=== PATIENT | female | born 1940 | race African-American/Black ===

== ENCOUNTER 2019-01-04 17:14 | Inpatient (IN) | payer MEDICARE ==
[~2019-01-04] VITALS: Ht 162.6 cm; Wt 72.6 kg
[2019-01-04] MEDS ORDERED: ALBUTEROL (0.083%) 2.5MG/3ML NEB HHN ONE (21:00)
[2019-01-04] MEDS ORDERED: METHYLPREDNISOLONE SOD SUCC 125 MG/2 ML VIAL IV ONE (21:00)
[2019-01-04 22:11] LABS: HEMATOCRIT. 33.1 % (36.0-48.0); HEMOGLOBIN. 11.1 g/dL (12.0-16.0); MEAN CORPUSCULAR VOLUME 95.2 fL (81.0-99.0); MEAN PLATELET VOLUME 6.7 fl (7.4-10.4); PLATELET 305 x1000/uL (130-400); RED BLOOD CELL COUNT 3.48 mill/uL (4.2-5.4); RED CELL DISTRIBUTION WIDTH 16.2 % (11.6-14.6)
[2019-01-04 22:15] LABS: CHLORIDE 98 mEq/L (98-107)
[2019-01-04 22:42] LABS: PLATELET ESTIMATE NORMAL
[2019-01-04] MEDS ORDERED: ALBUTEROL (0.083%) 2.5MG/3ML NEB HHN STA (22:59)
[2019-01-04] MEDS ORDERED: IPRATROPIUM BROMIDE (0.02%) 0.5MG/2.5ML NEB HHN STA (22:59)
[2019-01-04 23:56] LABS: CLARITY URINE CLEAR (CLEAR); COLOR URINE YELLOW (YELLOW); KETONES URINE NEGATIVE (NEGATIVE); LEUKOCYTE ESTERASE URINE NEGATIVE (NEGATIVE); NITRITE URINE NEGATIVE (NEGATIVE); OCCULT BLOOD URINE NEGATIVE (NEGATIVE); PH URINE 6.5 (4.5-8.0); PROTEIN URINE 3+ (NEGATIVE); SPECIFIC GRAVITY URINE 1.014 (1.005-1.030); UROBILINOGEN URINE 0.2 E.U./dL (0.2-1.0)
[2019-01-05 08:00] VITALS: BP 161/71
[2019-01-05] MEDS ORDERED: ASPI-1079 PO (10:34)
[2019-01-05] MEDS ORDERED: ATOR20TA65 MT (10:34)
[2019-01-05] MEDS ORDERED: POTA20TA12 MT (10:34)
[2019-01-05] MEDS ORDERED: GLUC-165 PO (10:34)
[2019-01-05] MEDS ORDERED: NIFE60TA94 MT (10:34)
[2019-01-05] MEDS ORDERED: LOSA1TAB34 MT (10:34)
[2019-01-05] MEDS ORDERED: TRAM50TA3 MT (10:34)
[2019-01-05] MEDS ORDERED: NA PHOS,M-B/NA PHOS,DI-BA ENEMA 118ML PR PRN (10:45)
[2019-01-05] MEDS ORDERED: DEXT 5%/0.45% NACL 1000ML 1,000 ML IV SCH (10:45)
[2019-01-05] MEDS ORDERED: MAGNESIUM/ALUMINUM HYDROXIDE/SIMETHICONE 30ML UDC PO PRN (10:45)
[2019-01-05] MEDS ORDERED: ONDANSETRON HCL 4MG/2ML INJ IV PRN (10:45)
[2019-01-05] MEDS ORDERED: DOCUSATE SODIUM 100MG CAPSULE PO PRN (10:45)
[2019-01-05] MEDS ORDERED: HYDROCODONE/ACETAMINOPHEN 5/325MG TABLET PO PRN (10:45)
[2019-01-05] MEDS ORDERED: ACETAMINOPHEN 325MG TABLET PO PRN (10:45)
[2019-01-05] MEDS ORDERED: IPRATROPIUM/ALBUTEROL 0.5-3(2.5)MG/3ML NEB INH PRN (10:45)
[2019-01-05] MEDS ORDERED: ACETAMINOPHEN 650MG SUPP PR PRN (10:45)
[2019-01-05] MEDS ORDERED: LORAZEPAM 0.5MG TABLET PO PRN (10:45)
[2019-01-05] MEDS ORDERED: CLONIDINE 0.1MG TABLET PO PRN (10:45)
[2019-01-05] MEDS ORDERED: DIPHENHYDRAMINE 50MG/ML VIAL IV PRN (10:45)
[2019-01-05] MEDS ORDERED: IPRATROPIUM/ALBUTEROL 0.5-3(2.5)MG/3ML NEB INH SCH (10:45)
[2019-01-05] MEDS: GUAIFENESIN 200MG/10ML SUGAR FREE UDC PO PRN ×2 (11:14→21:05)
[2019-01-05 12:00] VITALS: BP 170/77
[2019-01-05 12:47] VITALS: BP 161/71
[2019-01-05] MEDS: AMLODIPINE 5MG TABLET PO SCH (12:58)
[2019-01-05 13:20] LABS: HEMATOCRIT 29.7 % (36.0-48.0); HEMOGLOBIN 10.1 g/dL (12.0-16.0); MEAN CORPUSCULAR HEMOGLOBIN 32.6 pg (28.0-32.0); MEAN CORPUSCULAR VOLUME 95.5 fL (81.0-99.0); PLATELET 274 x1000/uL (130-400); RED BLOOD CELL COUNT 3.11 mill/uL (4.2-5.4); RED CELL DISTRIBUTION WIDTH 16.3 % (11.6-14.6)
[2019-01-05 14:53] LABS: *AMPHETAMINES SCREEN URINE NEGATIVE (NEGATIVE); *BARBITURATES SCREEN URINE NEGATIVE (NEGATIVE)
[2019-01-05 14:54] LABS: *BENZODIAZEPINES SCREEN URINE NEGATIVE (NEGATIVE); *COCAINE SCREEN URINE NEGATIVE (NEGATIVE); CANNABINOID URINE SCREEN NEGATIVE (NEGATIVE); METHADONE URINE SCREEN NEGATIVE (NEGATIVE); OPIATES URINE SCREEN NEGATIVE (NEGATIVE); PHENCYCLIDINE URINE SCREEN NEGATIVE (NEGATIVE)
[2019-01-05] MEDS ORDERED: AMLODIPINE 5MG TABLET PO SCH (15:15)
[2019-01-05] MEDS: SODIUM CHLORIDE 0.9% 1,000 ML IV SCH (15:30)
[2019-01-05] MEDS ORDERED: LIDOCAINE HCL/PF 1% 2ML VIAL ONE (15:30)
[2019-01-05 15:57] VITALS: BP 170/77
[2019-01-05] MEDS ORDERED: LEVOFLOXACIN 500MG PREMIX 100 ML IV SCH (16:00)
[2019-01-05] MEDS: METHYLPREDNISOLONE SOD SUCC 40 MG/ML VIAL IV SCH ×2 (16:34→21:05)
[2019-01-05] MEDS: LORATADINE 10MG TABLET PO SCH (16:35)
[2019-01-05 17:16] LABS: CREATINE KINASE 386 IU/L (26-192)
[2019-01-05 17:17] LABS: CREATINE KINASE MB FRACTION 5.5 ng/mL (0.5-3.6)
[2019-01-05 17:23] LABS: BG BASE EXCESS 0.4 mmol/L (-2.0-2.0); BG CARBOXYHEMOGLOBIN 0.3 % (0.5-1.5); BG DEOXYHEMOGLOBIN 5.5 % (0.0-5.0); BG FRACTION INSPIRED OXYGEN 21; BG HCO3 ACT 24.7 mmol/L (22.0-26.0); BG METHEMOGLOBIN 0.2 % (0.0-1.5); BG OXYGEN SATURATION 94.5 % (92.0-98.5); BG PCO2 39.1 mmHg (35.0-45.0); BG PH 7.419 (7.350-7.450); BG PO2 74.6 mmHg (75.0-100.0); BG SAMPLE SITE RIGHT BRACHIAL; BG TOTAL HEMOGLOBIN 12.7 g/dL (12.0-18.0); BG VENT MODE ROOM AIR
[2019-01-05 20:57] VITALS: BP 124/76
[2019-01-05] MEDS: FAMOTIDINE 20MG/2ML VIAL IV SCH (21:05)
[2019-01-05] MEDS: MONTELUKAST SODIUM 10MG TABLET PO SCH (21:05)
[2019-01-05] MEDS: BUDESONIDE 0.5MG/2ML NEB HHN SCH (21:37)
[2019-01-05] MEDS: IPRATROPIUM/ALBUTEROL 0.5-3(2.5)MG/3ML NEB INH SCH (21:40)
[2019-01-05 23:27] LABS: CREATINE KINASE MB FRACTION 7.4 ng/mL (0.5-3.6)
[2019-01-05 23:59] VITALS: BP 118/88
[2019-01-06] MEDS: IPRATROPIUM/ALBUTEROL 0.5-3(2.5)MG/3ML NEB INH SCH ×6 (01:20→21:26)
[2019-01-06 04:00] VITALS: BP 129/68
[2019-01-06] MEDS: METHYLPREDNISOLONE SOD SUCC 40 MG/ML VIAL IV SCH ×3 (06:46→21:13)
[2019-01-06 07:35] LABS: CHLORIDE 96 mEq/L (98-107)
[2019-01-06 07:45] LABS: LDL CHOLESTEROL 51 mg/dL (5-100)
[2019-01-06 07:47] LABS: HDL CHOLESTEROL 115 mg/dL (40-59); T4 FREE 1.08 ng/dL (0.76-1.46)
[2019-01-06 07:49] LABS: BASOPHILS % 0.1 % (0.0-2.0); HEMOGLOBIN. 10.7 g/dL (12.0-16.0); LYMPHOCYTES % 10.9 % (20.0-50.0); MEAN CORPUSCULAR HEMOGLOBIN 31.8 pg (28.0-32.0); MONOCYTES % 5.8 % (2.0-8.0); NEUTROPHILS % 83.2 % (40.0-76.0); PLATELET 295 x1000/uL (130-400); RED BLOOD CELL COUNT 3.37 mill/uL (4.2-5.4)
[2019-01-06 08:00] VITALS: BP 166/75
[2019-01-06] MEDS: FAMOTIDINE 20MG/2ML VIAL IV SCH (09:04)
[2019-01-06] MEDS: AMLODIPINE 5MG TABLET PO SCH (09:04)
[2019-01-06] MEDS: LORATADINE 10MG TABLET PO SCH (09:05)
[2019-01-06] MEDS: BUDESONIDE 0.5MG/2ML NEB HHN SCH ×2 (09:20→21:26)
[2019-01-06] MEDS ORDERED: POTASSIUM CHLORIDE 20MEQ TABLET SR PO SCH (10:45)
[2019-01-06] MEDS: GUAIFENESIN 200MG/10ML SUGAR FREE UDC PO PRN (11:07)
[2019-01-06 12:00] VITALS: BP 150/74
[2019-01-06 13:42] LABS: CREATINE KINASE MB FRACTION 6.6 ng/mL (0.5-3.6)
[2019-01-06 16:00] VITALS: BP 160/75
[2019-01-06] MEDS ORDERED: LEVOFLOXACIN 250MG PREMIX 50 ML IV SCH (16:00)
[2019-01-06] MEDS: SODIUM CHLORIDE 0.9% 1,000 ML IV SCH (16:57)
[2019-01-06] MEDS: THROAT LOZENGES-BENZOCAINE/MENTH/CETYLPYRD CL LOZENGES MM PRN (16:57)
[2019-01-06 20:00] VITALS: BP 145/81
[2019-01-06 20:31] LABS: CREATINE KINASE MB FRACTION 6.8 ng/mL (0.5-3.6)
[2019-01-06] MEDS: MONTELUKAST SODIUM 10MG TABLET PO SCH (21:13)
[2019-01-07] VITALS: BP 157/71
[2019-01-07] MEDS: IPRATROPIUM/ALBUTEROL 0.5-3(2.5)MG/3ML NEB INH SCH ×4 (00:34→12:24)
[2019-01-07 04:00] VITALS: BP 161/76
[2019-01-07] MEDS: METHYLPREDNISOLONE SOD SUCC 40 MG/ML VIAL IV SCH ×2 (06:18→13:43)
[2019-01-07] MEDS: THROAT LOZENGES-BENZOCAINE/MENTH/CETYLPYRD CL LOZENGES MM PRN (06:18)
[2019-01-07 07:11] LABS: HEMATOCRIT 29.5 % (36.0-48.0); HEMOGLOBIN 10.1 g/dL (12.0-16.0); MEAN CORPUSCULAR HEMOGLOBIN 32.2 pg (28.0-32.0); MEAN CORPUSCULAR VOLUME 94.5 fL (81.0-99.0); PLATELET 267 x1000/uL (130-400); RED BLOOD CELL COUNT 3.13 mill/uL (4.2-5.4); RED CELL DISTRIBUTION WIDTH 15.9 % (11.6-14.6)
[2019-01-07 07:24] LABS: PROTHROMBIN TIME 10.1 sec (9.1-11.1)
[2019-01-07 07:49] LABS: CREATINE KINASE MB FRACTION 5.4 ng/mL (0.5-3.6)
[2019-01-07 08:00] VITALS: BP 168/69
[2019-01-07] MEDS: AMLODIPINE 5MG TABLET PO SCH (08:57)
[2019-01-07] MEDS: LORATADINE 10MG TABLET PO SCH (08:58)
[2019-01-07] MEDS: FAMOTIDINE 20MG/2ML VIAL IV SCH (08:59)
[2019-01-07] MEDS: BUDESONIDE 0.5MG/2ML NEB HHN SCH (09:11)
[2019-01-07 11:59] VITALS: BP 173/66
[2019-01-07 12:00] VITALS: BP 173/66
[2019-01-07 14:55] VITALS: BP 127/78
== END 2019-01-07 17:10 | disposition home or self-care (01) | DRG 682 ==
LOC: ER 17:14 → 6WST 01-05 00:51 → EDBEDREQTM 01-05 01:20 → EDBEDREQ 01-05 01:20 → ENRESERV 01-05 07:50
PROVIDERS: ADMIT Internal Medicine; ATTEND Internal Medicine
DX: N17.9 Acute kidney failure, unspecified (principal); I50.33 Acute on chronic diastolic (congestive) heart failure; J44.1 Chronic obstructive pulmonary disease with (acute) exacerbation; I13.0 Hypertensive heart and chronic kidney disease with heart failure and stage 1 through stage 4 chronic kidney disease, or unspecified chronic kidney disease; E87.1 Hypo-osmolality and hyponatremia; N18.9 Chronic kidney disease, unspecified; D64.9 Anemia, unspecified; E04.1 Nontoxic single thyroid nodule; E78.00 Pure hypercholesterolemia, unspecified; M19.90 Unspecified osteoarthritis, unspecified site; D72.819 Decreased white blood cell count, unspecified
CPT/HCPCS: 36415; 36600; 70490; 71045; 71250; 76770; 78582; 80048; 80061; 80305; 82375; 82550; 82553; 82805; 83036; 83735; 83880; 84439; 84443; 84484; 85027; 85379; 93005; 93306; 93970; 94640; 94644; 96374; 96375; 97116; 97162; 99285; A9558; J1956; J2920; J2930; J3490; J7030; J7611; J7620; J7626

== ENCOUNTER 2019-02-06 12:11 | Inpatient (IN) | payer MEDICARE ==
[~2019-02-06] VITALS: Ht 165.1 cm; Wt 73.5 kg
[~2019-02-06 12:11] MED LIST: ASPI-1079 PO; ATOR20TA65 MT; GLUC-165 PO; LOSA1TAB34 MT; NIFE60TA94 MT; POTA20TA12 MT; TRAM50TA3 MT
[2019-02-06] MEDS ORDERED: SODIUM CHLORIDE 0.9% 1,000 ML IV ONE (12:49)
[2019-02-06 13:12] LABS: CHLORIDE 115 mEq/L (98-107)
[2019-02-06 13:19] LABS: HEMATOCRIT. 32.6 % (36.0-48.0); HEMOGLOBIN. 10.9 g/dL (12.0-16.0); MEAN CORPUSCULAR HEMOGLOBIN 32.6 pg (28.0-32.0); MEAN CORPUSCULAR VOLUME 97.9 fL (81.0-99.0); MEAN PLATELET VOLUME 6.8 fl (7.4-10.4); PLATELET 503 x1000/uL (130-400); RED BLOOD CELL COUNT 3.33 mill/uL (4.2-5.4); RED CELL DISTRIBUTION WIDTH 15.2 % (11.6-14.6)
[2019-02-06 13:37] LABS: PLATELET ESTIMATE INCREASED
[2019-02-06] MEDS ORDERED: DOCUSATE SODIUM 100MG CAPSULE PO PRN (15:00)
[2019-02-06] MEDS ORDERED: GUAIFENESIN 200MG/10ML SUGAR FREE UDC PO PRN (15:00)
[2019-02-06] MEDS ORDERED: DIPHENHYDRAMINE 50MG/ML VIAL IV PRN (15:00)
[2019-02-06] MEDS ORDERED: LORAZEPAM 0.5MG TABLET PO PRN (15:00)
[2019-02-06] MEDS ORDERED: IPRATROPIUM/ALBUTEROL 0.5-3(2.5)MG/3ML NEB INH PRN (15:00)
[2019-02-06] MEDS ORDERED: CLONIDINE 0.1MG TABLET PO PRN (15:00)
[2019-02-06] MEDS ORDERED: ACETAMINOPHEN 325MG TABLET PO PRN (15:00)
[2019-02-06] MEDS ORDERED: ACETAMINOPHEN 650MG SUPP PR PRN (15:00)
[2019-02-06] MEDS ORDERED: ONDANSETRON HCL 4MG/2ML INJ IV PRN (15:00)
[2019-02-06] MEDS ORDERED: MAGNESIUM/ALUMINUM HYDROXIDE/SIMETHICONE 30ML UDC PO PRN (15:00)
[2019-02-06] MEDS ORDERED: HYDROCODONE/ACETAMINOPHEN 5/325MG TABLET PO PRN (15:00)
[2019-02-06 15:42] LABS: BG CARBOXYHEMOGLOBIN 0.3 % (0.5-1.5); BG DEOXYHEMOGLOBIN 3.7 % (0.0-5.0); BG HCO3 ACT 9.1 mmol/L (22.0-26.0); BG METHEMOGLOBIN 0.4 % (0.0-1.5); BG OXYGEN SATURATION 96.3 % (92.0-98.5); BG OXYHEMOGLOBIN 95.6 % (94.0-97.0); BG PCO2 23.4 mmHg (35.0-45.0); BG PO2 94.7 mmHg (75.0-100.0); BG SAMPLE SITE RIGHT BRACHIAL; BG TOTAL HEMOGLOBIN 10.6 g/dL (12.0-18.0); BG VENT MODE ROOM AIR
[2019-02-06 16:03] LABS: INR 1.1; PROTHROMBIN TIME 11.4 sec (9.1-11.1)
[2019-02-06] MEDS ORDERED: SODIUM BICARBONATE 8.4% 1 MEQ/ML 50ML SYR IV ONE (18:15)
[2019-02-06] MEDS ORDERED: LEVOFLOXACIN 500MG PREMIX 100 ML IV NR (18:30)
[2019-02-06 21:00] VITALS: BP 144/68
[2019-02-06] MEDS ORDERED: HEPARIN 5000 UNITS/ML VIAL SUBCUT SCH (21:00)
[2019-02-06 22:18] LABS: CHLORIDE 118 mEq/L (98-107)
[2019-02-06 22:21] LABS: CREATINE KINASE 78 IU/L (26-192)
[2019-02-06 22:22] LABS: CREATINE KINASE MB FRACTION 2.4 ng/mL (0.5-3.6)
[2019-02-06 22:44] LABS: BG BASE EXCESS -15.1 mmol/L (-2.0-2.0); BG DEOXYHEMOGLOBIN 2.4 % (0.0-5.0); BG FRACTION INSPIRED OXYGEN 21; BG HCO3 ACT 10.2 mmol/L (22.0-26.0); BG METHEMOGLOBIN 0.4 % (0.0-1.5); BG OXYGEN SATURATION 97.6 % (92.0-98.5); BG OXYHEMOGLOBIN 97.2 % (94.0-97.0); BG PCO2 23.2 mmHg (35.0-45.0); BG PH 7.261 (7.350-7.450); BG PO2 109.7 mmHg (75.0-100.0); BG SAMPLE SITE LEFT RADIAL; BG TOTAL HEMOGLOBIN 10.5 g/dL (12.0-18.0); BG VENT MODE ROOM AIR
[2019-02-06] MEDS: METRONIDAZOLE 500MG TABLET PO SCH (22:51)
[2019-02-06] MEDS: SODIUM CHLORIDE 0.45% 1,000 ML IV SCH (22:52)
[2019-02-07] VITALS (9 sets, daily range): BP systolic 122–163; BP diastolic 50–94
[2019-02-07 07:16] LABS: CLARITY URINE CLOUDY (CLEAR); COLOR URINE YELLOW (YELLOW); KETONES URINE NEGATIVE (NEGATIVE); LEUKOCYTE ESTERASE URINE NEGATIVE (NEGATIVE); NITRITE URINE NEGATIVE (NEGATIVE); OCCULT BLOOD URINE 1+ (NEGATIVE); PROTEIN URINE 2+ (NEGATIVE); UROBILINOGEN URINE 0.2 E.U./dL (0.2-1.0)
[2019-02-07 08:06] LABS: MEAN CORPUSCULAR HEMOGLOBIN 32.4 pg (28.0-32.0); MEAN CORPUSCULAR VOLUME 97.3 fL (81.0-99.0); MEAN PLATELET VOLUME 6.9 fl (7.4-10.4); PLATELET 416 x1000/uL (130-400); RED BLOOD CELL COUNT 3.09 mill/uL (4.2-5.4); RED CELL DISTRIBUTION WIDTH 15.3 % (11.6-14.6)
[2019-02-07 08:20] LABS: *BARBITURATES SCREEN URINE NEGATIVE (NEGATIVE)
[2019-02-07 08:21] LABS: *AMPHETAMINES SCREEN URINE NEGATIVE (NEGATIVE); *BENZODIAZEPINES SCREEN URINE NEGATIVE (NEGATIVE); *COCAINE SCREEN URINE NEGATIVE (NEGATIVE); METHADONE URINE SCREEN NEGATIVE (NEGATIVE); OPIATES URINE SCREEN NEGATIVE (NEGATIVE)
[2019-02-07 08:23] LABS: CANNABINOID URINE SCREEN NEGATIVE (NEGATIVE); PHENCYCLIDINE URINE SCREEN NEGATIVE (NEGATIVE)
[2019-02-07] MEDS: PANTOPRAZOLE 40MG DR TABLET PO SCH (08:46)
[2019-02-07 09:16] LABS: CHLORIDE 115 mEq/L (98-107)
[2019-02-07 09:30] LABS: LDL CHOLESTEROL 31 mg/dL (5-100)
[2019-02-07 09:33] LABS: T4 FREE 1.04 ng/dL (0.76-1.46)
[2019-02-07 09:35] LABS: HDL CHOLESTEROL 52 mg/dL (40-59)
[2019-02-07] MEDS: SODIUM CHLORIDE 0.45% 1,000 ML IV SCH ×2 (10:12→21:06)
[2019-02-07] MEDS: METRONIDAZOLE 500MG TABLET PO SCH ×2 (10:16→20:33)
[2019-02-07 12:39] LABS: CREATINE KINASE 108 IU/L (26-192); CREATINE KINASE MB FRACTION 3.3 ng/mL (0.5-3.6)
[2019-02-07] MEDS ORDERED: SODIUM BICARBONATE 8.4% 1 MEQ/ML 50ML SYR IV SCH (13:45)
[2019-02-07] MEDS ORDERED: GUAIFENESIN 200MG/10ML SUGAR FREE UDC PO ONE (15:15)
[2019-02-07] MEDS ORDERED: POTASSIUM CHLORIDE 20MEQ TABLET SR PO NR (20:00)
[2019-02-07] MEDS: HEPARIN 5000 UNITS/ML VIAL SUBCUT SCH (20:34)
[2019-02-07] MEDS: IPRATROPIUM/ALBUTEROL 0.5-3(2.5)MG/3ML NEB HHN SCH (20:54)
[2019-02-08] VITALS (9 sets, daily range): BP systolic 98–155; BP diastolic 30–97
[2019-02-08] MEDS: IPRATROPIUM/ALBUTEROL 0.5-3(2.5)MG/3ML NEB HHN SCH ×4 (01:03→22:16)
[2019-02-08 06:45] LABS: HEMATOCRIT 27.2 % (36.0-48.0); MEAN CORPUSCULAR HEMOGLOBIN 32.2 pg (28.0-32.0); MEAN CORPUSCULAR VOLUME 97.6 fL (81.0-99.0); PLATELET 364 x1000/uL (130-400); RED BLOOD CELL COUNT 2.79 mill/uL (4.2-5.4); RED CELL DISTRIBUTION WIDTH 15.4 % (11.6-14.6)
[2019-02-08] MEDS: PANTOPRAZOLE 40MG DR TABLET PO SCH (08:38)
[2019-02-08] MEDS: SODIUM CHLORIDE 0.45% 1,000 ML IV SCH ×2 (08:39→19:01)
[2019-02-08] MEDS: METRONIDAZOLE 500MG TABLET PO SCH ×2 (09:32→20:13)
[2019-02-08] MEDS: HEPARIN 5000 UNITS/ML VIAL SUBCUT SCH ×2 (09:39→20:14)
[2019-02-08] MEDS: CITRIC ACID/SODIUM CITRATE SOLN 30ML UDC PO SCH ×3 (12:57→20:26)
[2019-02-08 13:55] LABS: PLATELET ESTIMATE INCREASED
[2019-02-08] MEDS ORDERED: LEVOFLOXACIN 250MG PREMIX 50 ML IV SCH ×2 (18:00→20:00)
[2019-02-09 00:42] VITALS: BP 129/60
[2019-02-09 04:00] VITALS: BP 132/43
[2019-02-09] MEDS: SODIUM CHLORIDE 0.45% 1,000 ML IV SCH ×3 (07:39→20:31)
[2019-02-09] MEDS: PANTOPRAZOLE 40MG DR TABLET PO SCH (07:43)
[2019-02-09 08:00] VITALS: BP 143/77
[2019-02-09] MEDS: IPRATROPIUM/ALBUTEROL 0.5-3(2.5)MG/3ML NEB HHN SCH ×3 (09:28→22:09)
[2019-02-09] MEDS: METRONIDAZOLE 500MG TABLET PO SCH ×2 (09:57→20:31)
[2019-02-09] MEDS: CITRIC ACID/SODIUM CITRATE SOLN 30ML UDC PO SCH ×3 (09:58→19:26)
[2019-02-09] MEDS: HEPARIN 5000 UNITS/ML VIAL SUBCUT SCH ×2 (10:32→20:32)
[2019-02-09 12:00] VITALS: BP 137/66
[2019-02-09] MEDS ORDERED: LOPERAMIDE HCL 2MG CAPSULE PO PRN ×2 (12:15→13:30)
[2019-02-09 12:34] LABS: HEMATOCRIT 28.6 % (36.0-48.0); HEMOGLOBIN 9.5 g/dL (12.0-16.0); MEAN CORPUSCULAR VOLUME 96.2 fL (81.0-99.0); PLATELET 397 x1000/uL (130-400); RED BLOOD CELL COUNT 2.97 mill/uL (4.2-5.4); RED CELL DISTRIBUTION WIDTH 14.9 % (11.6-14.6)
[2019-02-09] MEDS ORDERED: POTASSIUM CHLORIDE 20MEQ TABLET SR PO SCH (13:30)
[2019-02-09] MEDS: LOPERAMIDE HCL 2MG CAPSULE PO PRN (13:40)
[2019-02-09] MEDS ORDERED: POTASSIUM CHLORIDE INJ 40 MEQ in DEXT 5% WATER 250 ML IV SCH (15:00)
[2019-02-09 16:00] VITALS: BP 129/59
[2019-02-09] MEDS ORDERED: POTASSIUM CHLORIDE 20MEQ TABLET SR PO NR (18:00)
[2019-02-09] MEDS ORDERED: LORAZEPAM 0.5MG TABLET PO PRN (19:00)
[2019-02-09 20:00] VITALS: BP_SYST 110; BP_SYST 130; BP_DIAS 58; BP_DIAS 62
[2019-02-10] VITALS: BP 133/59
[2019-02-10] MEDS: IPRATROPIUM/ALBUTEROL 0.5-3(2.5)MG/3ML NEB HHN SCH ×4 (02:01→21:03)
[2019-02-10 04:00] VITALS: BP 140/64
[2019-02-10 05:55] LABS: HEMATOCRIT 26.3 % (36.0-48.0); MEAN CORPUSCULAR HEMOGLOBIN 32.5 pg (28.0-32.0); MEAN CORPUSCULAR VOLUME 95.1 fL (81.0-99.0); PLATELET 357 x1000/uL (130-400); RED BLOOD CELL COUNT 2.77 mill/uL (4.2-5.4); RED CELL DISTRIBUTION WIDTH 15.2 % (11.6-14.6)
[2019-02-10] MEDS: SODIUM CHLORIDE 0.45% 1,000 ML IV SCH ×2 (06:06→23:04)
[2019-02-10 08:28] VITALS: BP 139/69
[2019-02-10] MEDS: PANTOPRAZOLE 40MG DR TABLET PO SCH (08:44)
[2019-02-10] MEDS: METRONIDAZOLE 500MG TABLET PO SCH ×2 (08:44→22:57)
[2019-02-10 08:54] LABS: PHOSPHORUS 3.5 mg/dL (2.5-4.9)
[2019-02-10] MEDS ORDERED: POTASSIUM CHLORIDE 20MEQ TABLET SR PO NR (09:30)
[2019-02-10] MEDS: HEPARIN 5000 UNITS/ML VIAL SUBCUT SCH ×2 (10:01→23:03)
[2019-02-10] MEDS: CITRIC ACID/SODIUM CITRATE SOLN 30ML UDC PO SCH ×3 (10:21→19:13)
[2019-02-10 12:00] VITALS: BP 135/70
[2019-02-10] MEDS ORDERED: MAGNESIUM 2 G PREMIX 50 ML IV NR (13:00)
[2019-02-10] MEDS ORDERED: POTASSIUM CHLORIDE 20MEQ TABLET SR PO SCH (13:00)
[2019-02-10 16:00] VITALS: BP 135/43
[2019-02-10] MEDS: LOPERAMIDE HCL 2MG CAPSULE PO PRN (19:19)
[2019-02-10 20:00] VITALS: BP 178/41
[2019-02-10] MEDS ORDERED: LEVOFLOXACIN 250MG TABLET PO SCH (20:00)
[2019-02-11] VITALS (7 sets, daily range): BP systolic 134–174; BP diastolic 42–82
[2019-02-11] MEDS: IPRATROPIUM/ALBUTEROL 0.5-3(2.5)MG/3ML NEB HHN SCH ×4 (01:28→20:49)
[2019-02-11] MEDS: PANTOPRAZOLE 40MG DR TABLET PO SCH (08:13)
[2019-02-11] MEDS: METRONIDAZOLE 500MG TABLET PO SCH ×2 (09:36→21:14)
[2019-02-11] MEDS: CITRIC ACID/SODIUM CITRATE SOLN 30ML UDC PO SCH ×3 (09:44→17:16)
[2019-02-11] MEDS: HEPARIN 5000 UNITS/ML VIAL SUBCUT SCH (09:45)
[2019-02-11 12:12] LABS: HEMATOCRIT 28.5 % (36.0-48.0); HEMOGLOBIN 9.4 g/dL (12.0-16.0); MEAN CORPUSCULAR HEMOGLOBIN 32.8 pg (28.0-32.0); MEAN CORPUSCULAR VOLUME 99.4 fL (81.0-99.0); PLATELET 311 x1000/uL (130-400); RED BLOOD CELL COUNT 2.86 mill/uL (4.2-5.4)
[2019-02-11] MEDS ORDERED: MAGNESIUM 1 G PREMIX 100 ML IV NR (18:30)
== END 2019-02-11 21:30 | disposition home or self-care (01) | DRG 372 ==
LOC: ER 12:11 → 7WST 14:01 → ENRESERV 20:22
PROVIDERS: ADMIT Internal Medicine; ATTEND Internal Medicine
DX: A04.72 Enterocolitis due to Clostridium difficile, not specified as recurrent (principal); E87.2 Acidosis; N17.9 Acute kidney failure, unspecified; K50.90 Crohn's disease, unspecified, without complications; E44.0 Moderate protein-calorie malnutrition; G90.8 Other disorders of autonomic nervous system; D64.9 Anemia, unspecified; E86.0 Dehydration; E87.6 Hypokalemia; J06.9 Acute upper respiratory infection, unspecified; E78.5 Hyperlipidemia, unspecified; M19.90 Unspecified osteoarthritis, unspecified site; E83.42 Hypomagnesemia; Z79.82 Long term (current) use of aspirin; R73.9 Hyperglycemia, unspecified; I95.9 Hypotension, unspecified; M47.9 Spondylosis, unspecified; N18.3 Chronic kidney disease, stage 3 (moderate); E04.1 Nontoxic single thyroid nodule; R80.9 Proteinuria, unspecified; J45.909 Unspecified asthma, uncomplicated; I12.9 Hypertensive chronic kidney disease with stage 1 through stage 4 chronic kidney disease, or unspecified chronic kidney disease
CPT/HCPCS: 36415; 36600; 71045; 74176; 76770; 80048; 80061; 80305; 82270; 82375; 82550; 82553; 82805; 83036; 83735; 83880; 84100; 84132; 84439; 84443; 84484; 85027; 87015; 87045; 87427; 87449; 87493; 93005; 93880; 93970; 94640; 96365; 96375; 97162; 99285; J1644; J1956; J2405; J3475; J3480; J3490; J7030; J7060; J7620; A4315